=== PATIENT | female | born 1955 | race Caucasian/White ===

== ENCOUNTER 2021-10-10 13:32 | Inpatient (IN) | payer MEDICARE, MEDICAID ==
[2021-10-10] MEDS ORDERED: 50% Dextrose in Water 50 ML Syringe IVPUSH PRN (17:06)
[2021-10-10] MEDS ORDERED: Glucagon,Human Recombinant 1 MG Vial IM PRN (17:06)
[2021-10-10] MEDS: metFORMIN 500 MG Tab PO SCH (18:01)
[2021-10-10] MEDS: Cephalexin 250 MG Cap PO SCH (19:24)
[2021-10-10] MEDS: Metoprolol Tartrate 50 MG Tab PO SCH (19:24)
[2021-10-10] MEDS: Insulin Glarg,Human.Rec.Analog 100 Unit/ML SUBCUT SCH (19:25)
[2021-10-10] MEDS: Acetaminophen 500 MG Tab PO PRN (21:37)
[2021-10-11] MEDS ORDERED: Haloperidol Lactate 5 MG/ML SDV IM ONE (02:05)
[2021-10-11] MEDS ORDERED: Melatonin 3 MG Tab PO STA (02:09)
[2021-10-11] MEDS: Acetaminophen 500 MG Tab PO PRN ×2 (04:38→14:10)
[2021-10-11] MEDS: Metoprolol Tartrate 50 MG Tab PO SCH ×2 (08:24→19:37)
[2021-10-11] MEDS: atorvaSTATin 40 MG Tab PO SCH (08:25)
[2021-10-11] MEDS: Furosemide 20 MG Tab PO SCH (08:25)
[2021-10-11] MEDS: Clopidogrel 75 MG Tab PO SCH (08:25)
[2021-10-11] MEDS: metFORMIN 500 MG Tab PO SCH ×2 (08:25→17:54)
[2021-10-11] MEDS: Losartan 50 MG Tab PO SCH (08:25)
[2021-10-11] MEDS: Cephalexin 250 MG Cap PO SCH ×4 (08:26→19:36)
[2021-10-11] MEDS: Aspirin 81 MG Tab.EC PO SCH (08:26)
[2021-10-11 10:06] LABS: CHLORIDE,CL 101 mmol/L (98-107); SODIUM,NA 139 mmol/L (136-145)
[2021-10-11 10:12] LABS: ANION GAP 7.3 meq/L (7-15)
[2021-10-11] MEDS ORDERED: Loperamide 2 MG Tab PO ONE (13:25)
[2021-10-11] MEDS ORDERED: Haloperidol 5 MG Tab PO PRN (13:39)
[2021-10-11] MEDS: Loperamide 2 MG Tab PO PRN ×2 (16:38→17:55)
[2021-10-11] MEDS: Melatonin 3 MG Tab PO SCH (19:38)
[2021-10-11] MEDS: Insulin Glarg,Human.Rec.Analog 100 Unit/ML SUBCUT SCH (19:39)
[2021-10-12] MEDS: Ondansetron 4 MG Tab.DIS PO PRN ×4 (01:04→23:06)
[2021-10-12] MEDS: hydrOXYzine Pamoate 25 MG Cap PO PRN ×2 (01:54→21:18)
[2021-10-12] MEDS: Cephalexin 250 MG Cap PO SCH ×4 (08:52→19:27)
[2021-10-12] MEDS: Aspirin 81 MG Tab.EC PO SCH (08:52)
[2021-10-12] MEDS: Losartan 50 MG Tab PO SCH (08:52)
[2021-10-12] MEDS: atorvaSTATin 40 MG Tab PO SCH (08:53)
[2021-10-12] MEDS: Metoprolol Tartrate 50 MG Tab PO SCH ×2 (08:53→19:26)
[2021-10-12] MEDS: Furosemide 20 MG Tab PO SCH (08:53)
[2021-10-12] MEDS: metFORMIN 500 MG Tab PO SCH ×2 (08:53→17:32)
[2021-10-12] MEDS: Clopidogrel 75 MG Tab PO SCH (08:53)
[2021-10-12] MEDS: Acetaminophen 500 MG Tab PO PRN ×2 (16:17→23:06)
[2021-10-12] MEDS: Melatonin 3 MG Tab PO SCH (19:27)
[2021-10-12] MEDS: Insulin Glarg,Human.Rec.Analog 100 Unit/ML SUBCUT SCH (19:28)
[2021-10-12] MEDS: Loperamide 2 MG Tab PO PRN (21:18)
[2021-10-13] MEDS: Acetaminophen 500 MG Tab PO PRN ×3 (05:08→20:33)
[2021-10-13] MEDS: Ondansetron 4 MG Tab.DIS PO PRN ×3 (08:06→20:50)
[2021-10-13] MEDS: Losartan 50 MG Tab PO SCH (08:15)
[2021-10-13] MEDS: Clopidogrel 75 MG Tab PO SCH (08:15)
[2021-10-13] MEDS: Metoprolol Tartrate 50 MG Tab PO SCH ×2 (08:15→20:32)
[2021-10-13] MEDS: atorvaSTATin 40 MG Tab PO SCH (08:15)
[2021-10-13] MEDS: metFORMIN 500 MG Tab PO SCH ×2 (08:15→17:00)
[2021-10-13] MEDS: Aspirin 81 MG Tab.EC PO SCH (08:15)
[2021-10-13] MEDS: Furosemide 20 MG Tab PO SCH (08:15)
[2021-10-13] MEDS: Cephalexin 250 MG Cap PO SCH ×4 (08:15→20:34)
[2021-10-13] MEDS: FLUoxetine 20 MG Cap PO SCH (13:28)
[2021-10-13] MEDS: hydrOXYzine Pamoate 25 MG Cap PO PRN ×2 (13:29→22:06)
[2021-10-13] MEDS: Melatonin 3 MG Tab PO SCH (20:34)
[2021-10-13] MEDS: Loperamide 2 MG Tab PO PRN (20:35)
[2021-10-13] MEDS: Insulin Glarg,Human.Rec.Analog 100 Unit/ML SUBCUT SCH (20:35)
[2021-10-14] MEDS: Acetaminophen 500 MG Tab PO PRN ×2 (02:53→13:06)
[2021-10-14] MEDS: Ondansetron 4 MG Tab.DIS PO PRN ×2 (02:53→07:44)
[2021-10-14] MEDS: metFORMIN 500 MG Tab PO SCH ×2 (07:45→17:26)
[2021-10-14] MEDS: Clopidogrel 75 MG Tab PO SCH (07:46)
[2021-10-14] MEDS: Cephalexin 250 MG Cap PO SCH ×4 (07:46→19:20)
[2021-10-14] MEDS: Losartan 50 MG Tab PO SCH (07:47)
[2021-10-14] MEDS: Furosemide 20 MG Tab PO SCH (07:47)
[2021-10-14] MEDS: Metoprolol Tartrate 50 MG Tab PO SCH ×2 (07:48→19:21)
[2021-10-14] MEDS: atorvaSTATin 40 MG Tab PO SCH (07:48)
[2021-10-14] MEDS: FLUoxetine 20 MG Cap PO SCH (07:49)
[2021-10-14] MEDS: Aspirin 81 MG Tab.EC PO SCH (07:49)
[2021-10-14] MEDS ORDERED: QUEtiapine 25 MG Tab PO ONE (18:46)
[2021-10-14] MEDS ORDERED: LORazepam 1 MG Tab PO ONE (18:48)
[2021-10-14] MEDS: Melatonin 3 MG Tab PO SCH (19:21)
[2021-10-14] MEDS ORDERED: Insulin Glarg,Human.Rec.Analog 100 Unit/ML SUBCUT SCH (20:00)
[2021-10-15] MEDS: Acetaminophen 500 MG Tab PO PRN ×3 (02:15→19:57)
[2021-10-15] MEDS: Loperamide 2 MG Tab PO PRN ×2 (04:28→07:49)
[2021-10-15] MEDS: Clopidogrel 75 MG Tab PO SCH (07:49)
[2021-10-15] MEDS: Furosemide 20 MG Tab PO SCH (07:49)
[2021-10-15] MEDS: atorvaSTATin 40 MG Tab PO SCH (07:49)
[2021-10-15] MEDS: metFORMIN 500 MG Tab PO SCH ×2 (07:49→17:00)
[2021-10-15] MEDS: Aspirin 81 MG Tab.EC PO SCH (07:49)
[2021-10-15] MEDS: FLUoxetine 20 MG Cap PO SCH (07:49)
[2021-10-15] MEDS: Metoprolol Tartrate 50 MG Tab PO SCH ×2 (07:53→19:53)
[2021-10-15] MEDS: Losartan 50 MG Tab PO SCH (07:54)
[2021-10-15] MEDS: Ondansetron 4 MG Tab.DIS PO PRN ×2 (10:40→17:00)
[2021-10-15] MEDS: Melatonin 3 MG Tab PO SCH (19:53)
[2021-10-15] MEDS: LORazepam 0.5 MG Tab PO SCH (19:54)
[2021-10-15] MEDS: QUEtiapine 25 MG Tab PO SCH (19:54)
[2021-10-15] MEDS ORDERED: Insulin Glarg,Human.Rec.Analog 100 Unit/ML SUBCUT SCH (20:00)
[2021-10-16] MEDS: Acetaminophen 500 MG Tab PO PRN ×4 (01:50→23:13)
[2021-10-16] MEDS: Ondansetron 4 MG Tab.DIS PO PRN ×2 (05:44→17:07)
[2021-10-16] MEDS ORDERED: QUEtiapine 25 MG Tab PO ONE (08:00)
[2021-10-16] MEDS: atorvaSTATin 40 MG Tab PO SCH (08:09)
[2021-10-16] MEDS: Clopidogrel 75 MG Tab PO SCH (08:10)
[2021-10-16] MEDS: Furosemide 20 MG Tab PO SCH (08:10)
[2021-10-16] MEDS: Metoprolol Tartrate 50 MG Tab PO SCH ×2 (08:11→19:41)
[2021-10-16] MEDS: FLUoxetine 20 MG Cap PO SCH (08:11)
[2021-10-16] MEDS: Losartan 50 MG Tab PO SCH (08:11)
[2021-10-16] MEDS: Aspirin 81 MG Tab.EC PO SCH (08:12)
[2021-10-16] MEDS: metFORMIN 500 MG Tab PO SCH ×2 (08:12→17:59)
[2021-10-16] MEDS: Simethicone 125 MG Tab.Chew PO PRN ×2 (15:00→23:13)
[2021-10-16] MEDS: QUEtiapine 25 MG Tab PO SCH (19:39)
[2021-10-16] MEDS: LORazepam 0.5 MG Tab PO SCH (19:39)
[2021-10-16] MEDS: Melatonin 3 MG Tab PO SCH (19:40)
[2021-10-16] MEDS: Insulin Glarg,Human.Rec.Analog 100 Unit/ML SUBCUT SCH (19:43)
[2021-10-17] MEDS: Ondansetron 4 MG Tab.DIS PO PRN ×2 (07:55→13:48)
[2021-10-17] MEDS: Acetaminophen 500 MG Tab PO PRN ×3 (08:13→20:11)
[2021-10-17] MEDS: metFORMIN 500 MG Tab PO SCH ×2 (08:14→17:47)
[2021-10-17] MEDS: Furosemide 20 MG Tab PO SCH (08:14)
[2021-10-17] MEDS: Metoprolol Tartrate 50 MG Tab PO SCH ×2 (08:14→20:11)
[2021-10-17] MEDS: FLUoxetine 20 MG Cap PO SCH (08:14)
[2021-10-17] MEDS: Aspirin 81 MG Tab.EC PO SCH (08:14)
[2021-10-17] MEDS: atorvaSTATin 40 MG Tab PO SCH (08:14)
[2021-10-17] MEDS: Clopidogrel 75 MG Tab PO SCH (08:14)
[2021-10-17] MEDS: Losartan 50 MG Tab PO SCH (08:15)
[2021-10-17] MEDS: Simethicone 125 MG Tab.Chew PO PRN ×3 (08:15→20:10)
[2021-10-17] MEDS: Insulin Glarg,Human.Rec.Analog 100 Unit/ML SUBCUT SCH (20:09)
[2021-10-17] MEDS: Melatonin 3 MG Tab PO SCH (20:10)
[2021-10-17] MEDS: LORazepam 0.5 MG Tab PO SCH (20:10)
[2021-10-17] MEDS: QUEtiapine 25 MG Tab PO SCH (20:11)
[2021-10-18] MEDS: Acetaminophen 500 MG Tab PO PRN ×4 (03:22→20:31)
[2021-10-18] MEDS: Simethicone 125 MG Tab.Chew PO PRN ×3 (03:52→20:31)
[2021-10-18] MEDS: Clopidogrel 75 MG Tab PO SCH (07:49)
[2021-10-18] MEDS: atorvaSTATin 40 MG Tab PO SCH (07:49)
[2021-10-18] MEDS: FLUoxetine 20 MG Cap PO SCH (07:49)
[2021-10-18] MEDS: metFORMIN 500 MG Tab PO SCH ×2 (07:49→17:24)
[2021-10-18] MEDS: Aspirin 81 MG Tab.EC PO SCH (07:50)
[2021-10-18] MEDS: Furosemide 20 MG Tab PO SCH (07:50)
[2021-10-18] MEDS: Losartan 50 MG Tab PO SCH (07:55)
[2021-10-18] MEDS: Metoprolol Tartrate 50 MG Tab PO SCH ×2 (07:55→20:34)
[2021-10-18] MEDS: Ondansetron 4 MG Tab.DIS PO PRN ×2 (15:02→20:30)
[2021-10-18] MEDS: LORazepam 0.5 MG Tab PO SCH (20:29)
[2021-10-18] MEDS: QUEtiapine 25 MG Tab PO SCH (20:29)
[2021-10-18] MEDS: Insulin Glarg,Human.Rec.Analog 100 Unit/ML SUBCUT SCH (20:33)
[2021-10-18] MEDS: Melatonin 3 MG Tab PO SCH (20:33)
[2021-10-19] MEDS: Acetaminophen 500 MG Tab PO PRN (04:32)
[2021-10-19] MEDS: Aspirin 81 MG Tab.EC PO SCH (07:56)
[2021-10-19] MEDS: FLUoxetine 20 MG Cap PO SCH (07:56)
[2021-10-19] MEDS: Metoprolol Tartrate 50 MG Tab PO SCH (07:56)
[2021-10-19] MEDS: atorvaSTATin 40 MG Tab PO SCH (07:57)
[2021-10-19] MEDS: Clopidogrel 75 MG Tab PO SCH (07:57)
[2021-10-19] MEDS: Losartan 50 MG Tab PO SCH (07:57)
[2021-10-19] MEDS: metFORMIN 500 MG Tab PO SCH (07:57)
[2021-10-19] MEDS: Furosemide 20 MG Tab PO SCH (07:57)
[2021-10-19] MEDS: Ondansetron 4 MG Tab.DIS PO PRN (11:57)
== END 2021-10-19 13:45 | disposition home health service (06) | DRG 57 ==
LOC: LL.MS 14:25
PROVIDERS: ADMIT Hospitalist; ATTEND Hospitalist
DX: I69.30 Unspecified sequelae of cerebral infarction (principal); L97.919 Non-pressure chronic ulcer of unspecified part of right lower leg with unspecified severity; E11.9 Type 2 diabetes mellitus without complications; K80.20 Calculus of gallbladder without cholecystitis without obstruction; R53.1 Weakness; I83.019 Varicose veins of right lower extremity with ulcer of unspecified site; I10 Essential (primary) hypertension; E78.5 Hyperlipidemia, unspecified; Z88.0 Allergy status to penicillin; Z79.82 Long term (current) use of aspirin; Z79.4 Long term (current) use of insulin
CPT/HCPCS: 36415; 74019; 80053; 81001; 82947; 83735; 84100; 85025; 87324; 97110-GP; 97162-GP; 97166-GO; 97530-GO; 97530-GP; 97535-GO; A9270-GY; J1630; J1815-GY; Q0177